=== PATIENT | female | born 1955 | race Caucasian/White ===

== ENCOUNTER 2020-07-04 15:32 | Outpatient (REF) | payer MEDICARE, OTHER, SELFPAY ==
[2020-07-04 19:12] LABS: Abs Immature Grans 0.02 10^3/uL (0.0-0.06); Absolute Basophil Count 0.09 10^3/uL (0.0-0.2); Absolute Eosinophil Count 0.09 10^3/uL (0.0-0.7); Absolute Lymphocyte Count 3.07 10^3/uL (1.2-3.4); Absolute Monocyte Count 0.59 10^3/uL (0.1-0.8); Absolute Neutrophil Count 4.66 10^3/uL (1.2-6.7); Basophils % 1.1; Eosinophils % 1.1; HCT 44.3 % (36.0-46.0); HGB 14.3 g/dL (11.2-15.7); Immature Grans % 0.2; MCHC 32.3 % (32.0-36.0); MCV 93.1 fL (80-95); Monocytes % 6.9; Neutrophils % 54.7; Nucleated RBC 0 %; Platelet Count 283 10^3/uL (130-400); RBC 4.76 10^6/uL (3.93-5.22); RDW 13.2 % (11.7-14.6); RDW-SD 45.6 fL; WBC 8.52 10^3/uL (4.4-10.8)
[2020-07-04 19:23] LABS: Iron 90 ug/dL (50-170); Total Iron Binding Capacity 331 ug/dL (250-450); Transferrin Sat 27 % (15-50)
[2020-07-04 19:38] LABS: ALT 35 U/L (14-59); AST 19 U/L (15-37); Albumin 4.1 g/dL (3.4-5.0); Alkaline Phosphatase 51 U/L (46-116); BUN 14 mg/dL (7-18); Bilirubin, Total 0.4 mg/dL (0.2-1.0); CREATININE 0.95 mg/dL (0.55-1.02); Calcium 8.9 mg/dL (8.5-10.1); Calculated LDL 144 mg/dL (<100); Chloride 104 mmol/L (98-107); Cholesterol 246 mg/dL (<200); Estimated GFR 59.04 (mL/min/1.73m2); Ferritin 183 ng/mL (8-252); Glucose 109 mg/dL (74-106); HDL Cholesterol 51 mg/dL (40-60); Potassium 4.2 mmol/L (3.5-5.1); Sodium 138 mmol/L (136-145); TSH (W/Ref FT4) 4.07 uIU/mL (0.36-3.74); Triglyceride 257 mg/dL (<150)
[2020-07-04 20:04] LABS: FREE T4 0.81 ng/dL (0.76-1.46)
[2020-07-07 15:27] LABS: Hepatitis C Ab w Rflx HCV PCR Negative (Negative)
== END 2020-07-04 15:52 ==
LOC: NCHCN 15:32
PROVIDERS: Visit Provider Physician Assistant
DX: R42 Dizziness and giddiness (principal); Z86.59 Personal history of other mental and behavioral disorders; Z87.891 Personal history of nicotine dependence; Z77.21 Contact with and (suspected) exposure to potentially hazardous body fluids; N87.9 Dysplasia of cervix uteri, unspecified
CPT/HCPCS: 80053; 80061; 86803; 82728; 83036; 83540; 83550; 84439; 84443; 85025

== ENCOUNTER 2020-07-11 15:21 | Outpatient (REF) | payer MEDICARE, OTHER, SELFPAY | END 2020-07-11 15:41 | LOC: NCHCN 15:21 | PROVIDERS: Visit Provider Physician Assistant | DX: L29.8 Other pruritus (principal) | CPT/HCPCS: 87480; 87510; 87660 ==

== ENCOUNTER 2020-10-05 | Outpatient (REF) | payer MEDICARE, OTHER, SELFPAY ==
[2020-10-05 16:43] LABS: TSH (W/Ref FT4) 4.36 uIU/mL (0.36-3.74)
[2020-10-05 17:22] LABS: FREE T4 0.88 ng/dL (0.76-1.46)
== END 2020-10-06 00:26 | disposition home or self-care (01) ==
LOC: NCHCN
PROVIDERS: PCP Physician Assistant; Visit Provider Physician Assistant
DX: E03.9 Hypothyroidism, unspecified (principal)
CPT/HCPCS: 84439; 84443

== ENCOUNTER 2021-01-03 10:02 | Outpatient (REF) | payer MEDICARE, OTHER, SELFPAY ==
[2021-01-03 15:48] LABS: Hemoglobin A1C 5.8 % (<5.7)
[2021-01-03 16:01] LABS: TSH (W/Ref FT4) 3.81 uIU/mL (0.36-3.74)
[2021-01-03 16:35] LABS: FREE T4 0.75 ng/dL (0.76-1.46)
== END 2021-01-03 10:03 | disposition home or self-care (01) ==
LOC: NCHCN 10:02
PROVIDERS: PCP Physician Assistant; Visit Provider Physician Assistant
DX: R73.03 Prediabetes (principal); E03.9 Hypothyroidism, unspecified
CPT/HCPCS: 83036; 84439; 84443

== ENCOUNTER 2021-04-25 15:20 | Outpatient (REF) | payer MEDICARE, SELFPAY ==
[2021-04-25 20:20] LABS: Hemoglobin A1C 6.1 % (<5.7)
[2021-04-25 20:33] LABS: TSH 2.31 uIU/mL (0.36-3.74)
== END 2021-04-25 15:21 | disposition home or self-care (01) ==
LOC: NCHCN 15:20
PROVIDERS: PCP Physician Assistant; Visit Provider Physician Assistant
DX: R73.03 Prediabetes (principal); E03.9 Hypothyroidism, unspecified
CPT/HCPCS: 83036; 84443

== ENCOUNTER 2022-01-30 19:34 | Outpatient (REF) | payer MEDICARE, SELFPAY ==
[2022-01-30 21:25] LABS: Anion Gap 10.2 mmol/L (3-11); BUN 15 mg/dL (7-18); CO2 24.8 mmol/L (21.0-32.0); CREATININE 0.9 mg/dL (0.55-1.02); Calcium 9.1 mg/dL (8.5-10.1); Chloride 103 mmol/L (98-107); Glucose 105 mg/dL (74-106); Potassium 4.4 mmol/L (3.5-5.1); Sodium 138 mmol/L (136-145); TSH (W/Ref FT4) 1.37 uIU/mL (0.36-3.74)
== END 2022-01-30 19:35 | disposition home or self-care (01) ==
LOC: NCHCN 19:34
PROVIDERS: PCP Physician Assistant; Visit Provider Physician Assistant
DX: E03.9 Hypothyroidism, unspecified (principal); R73.03 Prediabetes
CPT/HCPCS: 80048; 84443

== ENCOUNTER 2023-02-12 10:07 | Outpatient (REF) | payer MEDICARE, SELFPAY ==
[2023-02-12 21:42] LABS: ALT 26 U/L (14-59); AST 20 U/L (15-37); Albumin 3.8 g/dL (3.4-5.0); Alkaline Phosphatase 62 U/L (46-116); BUN 15 mg/dL (7-18); Bilirubin, Total 0.3 mg/dL (0.2-1.0); CREATININE 0.9 mg/dL (0.55-1.02); Calcium 8.7 mg/dL (8.5-10.1); Calculated LDL 156 mg/dL (<100); Chloride 106 mmol/L (98-107); Cholesterol 235 mg/dL (<200); Estimated GFR 70.07 (mL/min/1.73m2); Glucose 124 mg/dL (74-106); HDL Cholesterol 54 mg/dL (40-60); Sodium 140 mmol/L (136-145); TSH 4.08 uIU/mL (0.36-3.74); Total Protein 7.5 g/dL (6.4-8.2); Triglyceride 125 mg/dL (<150)
== END 2023-02-12 10:08 | disposition home or self-care (01) ==
LOC: NCHCN 10:07
PROVIDERS: PCP Physician Assistant; Visit Provider Physician Assistant
DX: E78.5 Hyperlipidemia, unspecified (principal); E03.9 Hypothyroidism, unspecified; R73.03 Prediabetes
CPT/HCPCS: 80053; 80061; 84443

== ENCOUNTER 2023-04-03 18:23 | Outpatient (REF) | payer MEDICARE, SELFPAY ==
[2023-04-03 19:17] LABS: TSH (W/Ref FT4) 0.74 uIU/mL (0.36-3.74)
== END 2023-04-03 18:24 | disposition home or self-care (01) ==
LOC: NCHCN 18:23
PROVIDERS: PCP Physician Assistant; Visit Provider Physician Assistant
DX: E03.9 Hypothyroidism, unspecified (principal)
CPT/HCPCS: 84443

== ENCOUNTER 2024-02-12 12:09 | Outpatient (REF) | payer MEDICARE, SELFPAY ==
[2024-02-12 19:30] LABS: Anion Gap 8.5 mmol/L (3-11); BUN 11 mg/dL (7-18); CO2 26.5 mmol/L (21.0-32.0); CREATININE 0.9 mg/dL (0.55-1.02); Calcium 9.2 mg/dL (8.5-10.1); Calculated LDL 130 mg/dL (<100); Chloride 101 mmol/L (98-107); Cholesterol 230 mg/dL (<200); Estimated GFR 69.64 (mL/min/1.73m2); Glucose 105 mg/dL (74-106); HDL Cholesterol 60 mg/dL (40-60); Sodium 136 mmol/L (136-145); Triglyceride 202 mg/dL (<150)
== END 2024-02-12 12:10 | disposition home or self-care (01) ==
LOC: NCHCN 12:09
PROVIDERS: PCP Physician Assistant; Visit Provider Nurse Practitioner Family
DX: E03.9 Hypothyroidism, unspecified (principal); R73.03 Prediabetes; E78.5 Hyperlipidemia, unspecified
CPT/HCPCS: 80048; 80061; 84443

== ENCOUNTER 2025-02-09 09:32 | Outpatient (REF) | payer MEDICARE, SELFPAY ==
[2025-02-09 21:53] LABS: ALT 36 U/L (14-59); AST 21 U/L (15-37); Albumin 4.1 g/dL (3.4-5.0); Alkaline Phosphatase 62 U/L (46-116); Anion Gap 8.5 mmol/L (3-11); BUN 16 mg/dL (7-18); Bilirubin, Total 0.5 mg/dL (0.2-1.0); CO2 26.5 mmol/L (21.0-32.0); CREATININE 0.9 mg/dL (0.55-1.02); Calcium 9.3 mg/dL (8.5-10.1); Calculated LDL 147 mg/dL (<100); Chloride 102 mmol/L (98-107); Cholesterol 246 mg/dL (<200); Glucose 112 mg/dL (74-106); HDL Cholesterol 54 mg/dL (>or=50); Potassium 4.4 mmol/L (3.5-5.1); Sodium 137 mmol/L (136-145); TSH (W/Ref FT4) 0.83 uIU/mL (0.36-3.74); Total Protein 7.7 g/dL (6.4-8.2); Triglyceride 226 mg/dL (<150)
== END 2025-02-09 09:33 | disposition home or self-care (01) ==
LOC: NCHCN 09:32
PROVIDERS: PCP Physician Assistant; Visit Provider Nurse Practitioner Family
DX: E78.5 Hyperlipidemia, unspecified (principal); E03.9 Hypothyroidism, unspecified
CPT/HCPCS: 80053; 80061; 84443